=== PATIENT | female | born 1995 | race Two or more races ===

== ENCOUNTER → 2019-02-13 | Outpatient (CLI) | payer BC | LOC: OD 18:58 | PROVIDERS: ATTEND Nurse Practitioner Family | DX: R30.0 Dysuria (principal) | CPT/HCPCS: 87086; 87088; 87186 ==

== ENCOUNTER 2019-08-19 14:23 | Emergency (ER) | payer BC ==
--- NOTE | 2019-08-19 14:51 | ER Document Report ---
ED Medical Screen (RME) - General Chief Complaint: Abdominal Pain Stated Complaint: ABDOMINAL PAIN Time Seen by Provider: 08/19/19 14:37 Primary Care Provider: MANDO COLVIN NP [Primary Care Provider] - Follow up as needed Mode of Arrival: Ambulatory Information source: Patient Notes: 24-year-old female presents emergency department with complaints of right lower quad mid abdominal pain for the past 2 days. Reports it hurts more when she walks or when she goes to stand up. Reports vaginal discharge and vaginal irritation more than normal. Denies pain with void. Complains of nausea denies fever vomiting. Reports decreased appetite. patient is tender to palpate in the right lower quad and lower mid abdominal area. I have greeted and performed a rapid initial assessment of this patient. A comprehensive ED assessment and evaluation of the patient, analysis of test results and completion of the medical decision making process will be conducted by additional ED providers. Dictation of this chart was performed using voice recognition software; therefore, there may be some unintended grammatical errors. TRAVEL OUTSIDE OF THE [place] IN LAST 30 DAYS: No - Related Data Allergies/Adverse Reactions: No Known Allergies Allergy (Verified 08/19/19 14:25) Physical Exam - Vital signs Vitals: Temp Pulse Resp BP Pulse Ox 98 F 58 L 14 114/56 L 100 08/19/19 14:25 08/19/19 14:25 08/19/19 14:25 08/19/19 14:25 08/19/19 14:25 Course - Vital Signs Vital signs: Temp Pulse Resp BP Pulse Ox 98 F 58 L 14 114/56 L 100 08/19/19 14:25 08/19/19 14:25 08/19/19 14:25 08/19/19 14:25 08/19/19 14:25 Doctor's Discharge - Discharge Referrals: MANDO COLVIN NP [Primary Care Provider] - Follow up as needed
[2019-08-19 15:26] LABS: ABSOLUTE EOSINOPHILS # (AUTO) 0.2 10^3/uL (0.0-0.6); ABSOLUTE LYMPHOCYTES (AUTO) 2.4 10^3/uL (0.5-4.7); ABSOLUTE MONOCYTES (AUTO) 0.3 10^3/uL (0.1-1.4); ABSOLUTE NEUT (AUTO) 4.4 10^3/uL (1.7-8.2); BASOPHILS % (AUTO) 0.5 % (0-2); EOSINOPHILS % (AUTO) 2.1 % (0-6); HEMATOCRIT 35.1 % (36.0-47.0); HEMOGLOBIN 12.2 g/dL (12.0-15.5); LYMPHOCYTES % (AUTO) 32.7 % (13-45); MEAN CORPUSCULAR HEMOGLOBIN 29.9 pg (27.0-33.4); MEAN CORPUSCULAR HGB CONC 34.7 g/dL (32.0-36.0); MEAN CORPUSCULAR VOLUME 86 fl (80-97); MONOCYTES % (AUTO) 4.4 % (3-13); PLATELET COUNT 176 10^3/uL (150-450); RED BLOOD COUNT 4.07 10^6/uL (3.72-5.28); RED CELL DISTRIBUTION WIDTH 12.8 % (11.5-14.0); SEGMENTED NEUTROPHILS % (AUTO) 60.3 % (42-78); TOTAL CELLS COUNTED % (AUTO) 100 %; WHITE BLOOD COUNT 7.3 10^3/uL (4.0-10.5)
--- NOTE | 2019-08-19 15:27 | ER Document Report ---
ED General - General Chief Complaint: Abdominal Pain Stated Complaint: ABDOMINAL PAIN Time Seen by Provider: 08/19/19 14:37 Primary Care Provider: MANDO COLVIN NP [NO LOCAL MD] - 08/22/19 Mode of Arrival: Ambulatory TRAVEL OUTSIDE OF THE [place] IN LAST 30 DAYS: No - HPI Notes: 24 year old female to the ED with complaints of lower abdominal pain, nausea and a small amount of diarrhea. Patient reports her last satisfactory BM was 4-5 day ago. States that the pain in cramping in nature and seems to be worse on the right side. States that the pain comes and goes. Denies chance for . Denies fever or chills. Denies chest pain, SOB, urinary complaints. - Related Data Allergies/Adverse Reactions: No Known Allergies Allergy (Verified 08/19/19 14:25) Past Medical History - General Information source: Patient - Social History Smoking Status: Never Smoker Frequency of alcohol use: None Drug Abuse: None Family History: Reviewed & Not Pertinent Patient has suicidal ideation: No Patient has homicidal ideation: No Review of Systems - Review of Systems Constitutional: denies: Chills, Diaphoresis, Fever EENT: No symptoms reported Cardiovascular: denies: Chest pain, Palpitations, Heart racing, Orthopnea, Dyspnea, Syncope, Dizziness, Lightheaded Respiratory: denies: Cough, Short of breath Gastrointestinal: Abdominal pain, Diarrhea, Nausea, Constipation. denies: Vomiting Genitourinary: No symptoms reported Female Genitourinary: No symptoms reported Musculoskeletal: No symptoms reported Skin: No symptoms reported -: Yes All other systems reviewed and negative Physical Exam - Vital signs Vitals: Temp Pulse Resp BP Pulse Ox 98 F 58 L 14 114/56 L 100 08/19/19 14:25 08/19/19 14:25 08/19/19 14:25 08/19/19 14:25 08/19/19 14:25 Interpretation: Normal - General General appearance: Appears well, Alert In distress: None - HEENT Head: Normocephalic, Atraumatic Eyes: Normal Pupils: PERRL - Respiratory Respiratory status: No respiratory distress Chest status: Nontender Breath sounds: Normal Chest palpation: Normal - Cardiovascular Rhythm: Regular Heart sounds: Normal auscultation Murmur: No - Abdominal Inspection: Normal Distension: No distension Bowel sounds: Normal Tenderness: Tender - + TTP over the RLQ and the LLQ. pain is greater in the RLQ than LLQ. No rebound or guarding. Negative Davenport's sign. Organomegaly: No organomegaly - Back Back: Normal, Nontender. No: CVA tenderness - Neurological Neuro grossly intact: Yes Cognition: Normal Orientation: AAOx4 [place] Coma Scale Eye Opening: Spontaneous [place] Coma Scale Verbal: Oriented [place] Coma Scale Motor: Obeys Commands [place] Coma Scale Total: 15 Speech: Normal Motor strength normal: LUE, RUE, LLE, RLE Sensory: Normal - Psychological Associated symptoms: Normal affect, Normal mood - Skin Skin Temperature: Warm Skin Moisture: Dry Skin Color: Normal Course - Re-evaluation Re-evalutation: Abdomen/Pelvis CT 08/19/19 15:27 IMPRESSION: The appendix is normal. There is a possible 2 cm septated cyst on the right ovary. Recommend pelvic ultrasound. Transvaginal US 08/19/19 17:53 IMPRESSION: ESSENTIALLY NORMAL TRANSVAGINAL PELVIC ULTRASOUND. IMpression: Lower abdominal pain, follicular ovarian cysts. Patient has had relief of pain and feeling much better. Her labs are reassuring. Will discharge home and have her follow up outpatient. Encouraged to return if worse at all. - Vital Signs Vital signs: Temp Pulse Resp BP Pulse Ox 98.2 F 65 16 116/56 L 99 08/19/19 20:32 08/19/19 20:32 08/19/19 20:32 08/19/19 20:32 08/19/19 20:32 - Laboratory Result Diagrams: 08/19/19 15:01 08/19/19 15:01 Laboratory results interpreted by me: 08/19/19 15:01 Hct 35.1 L - Diagnostic Test Radiology reviewed: Image reviewed, Reports reviewed Discharge - Discharge Clinical Impression: Pelvic pain, Follicle cyst Condition: Stable Disposition: HOME, SELF-CARE Instructions: Abdominal Pain ([facility]) Additional Instructions: TAKE MEDICINES PRESCRIBED. RETURN IF WORSENING PAIN, FEVERS, INTRACTABLE VOMITING. PUSH FLUIDS. REST. TAKE MEDICINES PRESCRIBED. Prescriptions: Ketorolac Tromethamine [Toradol 10 mg Tablet] 10 mg PO Q8HP PRN #9 tablet PRN Reason: Ondansetron [Zofran Odt 4 mg Tablet] 1 - 2 tab PO Q4H PRN #15 tab.rapdis PRN Reason: For Nausea/Vomiting Forms: Return to Work Referrals: MANDO COLVIN NP [NO LOCAL MD] - 08/22/19
[2019-08-19 15:28] LABS: APPEARANCE,URINE CLEAR; BILIRUBIN,URINE NEGATIVE (NEGATIVE); COLOR,URINE YELLOW; GLUCOSE, URINE NEGATIVE (NEGATIVE); KETONES,URINE NEGATIVE (NEGATIVE); LEUKOCYTE ESTERASE,URINE NEGATIVE (NEGATIVE); NITRITE,URINE NEGATIVE (NEGATIVE); PROTEIN,URINE NEGATIVE (NEGATIVE); URINE SPECIFIC GRAVITY 1.015; UROBILINOGEN,URINE NEGATIVE mg/dL (<2.0)
[2019-08-19] MEDS ORDERED: NORMAL SALINE 1000 ML 1,000 ML IV ONE (15:28)
[2019-08-19] MEDS ORDERED: ONDANSETRON HCL INJ/PF 4 MG/2 ML SDV IV ONE (15:28)
[2019-08-19] MEDS ORDERED: MORPHINE SULFATE 10 MG/ML INJ IV ONE (15:29)
[2019-08-19 15:45] LABS: ALKALINE PHOSPHATASE 46 U/L (38-126); ANION GAP 8 (5-19); ASPARTATE AMINO TRANSFERASE 30 U/L (14-36); BILIRUBIN,DIRECT 0.1 mg/dL (0.0-0.4); BILIRUBIN,TOTAL 0.2 mg/dL (0.2-1.3); BLOOD UREA NITROGEN 7 mg/dL (7-20); CALCIUM 8.8 mg/dL (8.4-10.2); CARBON DIOXIDE 30 mmol/L (22-30); CHLORIDE 101 mmol/L (98-107); GLUCOSE 92 mg/dL (75-110); POTASSIUM 3.8 mmol/L (3.6-5.0); TOTAL PROTEIN 6.8 g/dL (6.3-8.2)
--- NOTE | 2019-08-19 16:53 | RADIOLOGY REPORT (SQ) ---
EXAM DESCRIPTION: CT ABD/PELVIS WITH IV ONLY COMPLETED DATE/TIME: 08/19/2019 4:32 pm REASON FOR STUDY: RLQ pain COMPARISON: None. TECHNIQUE: CT scan of the abdomen and pelvis performed using helical scanning technique with dynamic intravenous contrast injection. No oral contrast. Images reviewed with lung, soft tissue, and bone windows. Reconstructed coronal and sagittal MPR images reviewed. Delayed images for evaluation of the urinary system also acquired. All images stored on PACS. All CT scanners at this facility use dose modulation, iterative reconstruction, and/or weight based d osing when appropriate to reduce radiation dose to as low as reasonably achievable (ALARA). [facility]: Dose Right [facility]: CareDose [facility]: Dose Right [facility]: Teradose 4D [facility]: [employer] Vaccines CONTRAST TYPE AND DOSE: contrast/concentration: Isovue 350.00 mg/ml; Total Contrast Delivered: 61.0 ml; Total Saline Delivered: 65.0 ml RENAL FUNCTION: BUN 7 creatinine 0.66 RADIATION DOSE: CT Rad equipment meets quality standard of care and radiation dose reduction techniq ues were employed. CTDIvol: 4.8 - 5.2 mGy. DLP: 469 mGy-cm.. LIMITATIONS: None. FINDINGS: LOWER CHEST: No significant findings. No nodules or infiltrates. LIVER: Normal size. No masses. No dilated ducts. SPLEEN: Normal size. No focal lesions. PANCREAS: No masses. No significant calcifications. No adjacent inflammation or peripancreatic fluid collections. Pancreatic duct not dilated. GALLBLADDER: No identified stones by CT criteria. No inflammatory changes to suggest cholecystitis. ADRENAL GLANDS: No significant masses or asymmetry. RIGHT KIDNEY AND URETER: No solid masses. No significant calcifications. No hydronephrosis or hyd roureter. LEFT KIDNEY AND URETER: No solid masses. No significant calcifications. No hydronephrosis or hydr oureter. AORTA AND VESSELS: No aneurysm. No dissection. Renal arteries, SMA, celiac without stenosis. RETROPERITONEUM: No retroperitoneal adenopathy, hemorrhage or masses. BOWEL AND PERITONEAL CAVITY: No masses or inflammatory changes. No free fluid or peritoneal masses. APPENDIX: Normal. PELVIS: Possible 2 cm septated cyst in the right ovary on image 60 series 3 urinary bladder is normal . No free fluid. ABDOMINAL WALL: No masses. No hernias. BONES: No significant or acute findings. OTHER: No other significant finding. IMPRESSION: The appendix is normal. There is a possible 2 cm septated cyst on the right ovary. Rec ommend pelvic ultrasound. TECHNICAL DOCUMENTATION: JOB ID: [id number] Quality ID # [id number]: Final reports with documentation of one or more dose reduction techniques (e.g., Au tomated exposure control, adjustment of the mA and/or kV according to patient size, use of iterative reconstruction technique) 2010 [employer]- All Rights Reserved Reading location - IP/workstation name: [email or web address]
[2019-08-19 18:14] LABS: CHLAM PCR NOT DETECTED (NOT DETECT)
--- NOTE | 2019-08-19 20:08 | RADIOLOGY REPORT (SQ) ---
EXAM DESCRIPTION: U/S NON OB PEL TV W/DOPPLER COMPLETED DATE/TIME: 08/19/2019 7:40 pm REASON FOR STUDY: RLQ abd pain, eval torsion COMPARISON: CT abdomen pelvis 08/19/2019 TECHNIQUE: Dynamic and static grayscale images acquired of the pelvis via transvaginal approach and recorded on PACS. Additional selected color Doppler and spectral images recorded. LIMITATIONS: None. FINDINGS: UTERUS: Contour normal. No mass. Uterus is 8 x 4 x 5 cm in size ENDOMETRIAL STRIPE: No focal or generalized thickening. No masses. Endometrial stripe 7 mm in thickn ess CERVIX: No nabothian cysts. Closed, 2.5 cm in length. RIGHT OVARY AND DOPPLER: Normal size, 2.5 x 2.2 x 3.4 cm in size. Multiple small follicular cysts, b enign. No worrisome masses. Normal arterial vascular flow without evidence for torsion. LEFT OVARY AND DOPPLER: Normal size, 2.3 x 1.6 x 1.5 cm in size. No worrisome masses. Normal arterial vascular flow without evidence for torsion. FREE FLUID: None noted. OTHER: Urine HCG was negative today. IMPRESSION: ESSENTIALLY NORMAL TRANSVAGINAL PELVIC ULTRASOUND. TECHNICAL DOCUMENTATION: JOB ID: [id number] [employer] All Rights Reserved Rev-04/16 Reading location - IP/workstation name: [email or web address]
[2019-08-19 20:34] VITALS: BP 116/56
== END 2019-08-19 20:33 | disposition home or self-care (01) ==
LOC: ER 14:23
DX: N83.01 Follicular cyst of right ovary (principal); R10.2 Pelvic and perineal pain; R10.9 Unspecified abdominal pain; R10.31 Right lower quadrant pain; N89.8 Other specified noninflammatory disorders of vagina; R19.7 Diarrhea, unspecified
CPT/HCPCS: 99284; 96361; 96374; 96375; 36415; 85025; 81025; 80053; 81001; 87491; 87591; 76830; 93976; 74177; J2270; J2405; J7030

== ENCOUNTER 2019-10-07 18:57 | Emergency (ER) | payer OTHER, BC ==
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
[2019-10-07] MEDS ORDERED: NAPROXEN 250 MG TABLET PO ONE (21:50)
[2019-10-07] MEDS ORDERED: CYCLOBENZAPRINE HCL 10 MG TABLET PO ONE (21:50)
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
[2019-10-07 22:14] VITALS: BP 120/51
== END 2019-10-07 22:24 | disposition home or self-care (01) ==
LOC: ER 18:57
DX: S29.012A Strain of muscle and tendon of back wall of thorax, initial encounter (principal); M54.6 Pain in thoracic spine; M25.511 Pain in right shoulder; M25.512 Pain in left shoulder; V89.2XXA Person injured in unspecified motor-vehicle accident, traffic, initial encounter
CPT/HCPCS: 99283

== ENCOUNTER 2020-08-20 20:53 | Emergency (ER) | payer BC, MEDICAID, OTHER ==
--- NOTE | 2020-08-20 21:56 | ER Document Report ---
ED Medical Screen (RME) - General Chief Complaint: Abdominal Pain Stated Complaint: LOWER ABDOMINAL PAIN Time Seen by Provider: 08/20/20 21:48 Mode of Arrival: Ambulatory Information source: Patient Notes: 25-year-old male presented to ED for lower abdominal/pelvic pain. She states the pain is been for couple days. She states she has had brownish discharge for for 5 days. She states her last menstrual. Was July 20. She states she does have a history of her right salpingo-oophorectomy due to an ovarian cyst. She states they also removed her appendix at that time. She states she does not know if she is or if she is just having vaginal discharge. She does complain of tenderness to palpation. She denies any urinary symptoms. I have greeted and performed a rapid initial assessment of this patient. A comprehensive ED assessment and evaluation of the patient, analysis of test results and completion of medical decision making process will be conducted by an additional ED providers. TRAVEL OUTSIDE OF THE [place] IN LAST 30 DAYS: No - Related Data Allergies/Adverse Reactions: No Known Allergies Allergy (Unverified 10/07/19 20:11) Physical Exam - Vital signs Vitals: Temp Pulse Resp BP Pulse Ox 98.0 F 94 16 118/62 96 08/20/20 21:01 08/20/20 21:01 08/20/20 21:01 08/20/20 21:01 08/20/20 21:01 Course - Vital Signs Vital signs: Temp Pulse Resp BP Pulse Ox 98.0 F 94 16 118/62 96 08/20/20 21:01 08/20/20 21:01 08/20/20 21:01 08/20/20 21:01 08/20/20 21:01
[2020-08-20 22:20] LABS: APPEARANCE,URINE CLEAR; BILIRUBIN,URINE NEGATIVE (NEGATIVE); COLOR,URINE YELLOW; GLUCOSE, URINE NEGATIVE (NEGATIVE); KETONES,URINE NEGATIVE (NEGATIVE); LEUKOCYTE ESTERASE,URINE NEGATIVE (NEGATIVE); NITRITE,URINE NEGATIVE (NEGATIVE); PROTEIN,URINE NEGATIVE (NEGATIVE); URINE SPECIFIC GRAVITY 1.025; UROBILINOGEN,URINE NEGATIVE mg/dL (<2.0)
--- NOTE | 2020-08-20 23:35 | RADIOLOGY REPORT (SQ) ---
EXAM DESCRIPTION: US TRANSVAGINAL COMPLETED DATE/TME: 08/20/2020 21:53 CLINICAL HISTORY: 25 years, Female, pelvic pain vaginal bleed rt ovary tube removed COMPARISON: Prior study from 08/19/2019 TECHNIQUE: Axial 2-D grayscale images of the pelvis were acquired. Doppler was utilized. LIMITATIONS: None. FINDINGS: Uterus measures 9.2 x 4.6 x 5.9 cm in size. Cervix is closed, measuring 2.9 cm in length. Endometrial stripe thickness measures 1.2 cm. A small amount of fluid is noted within the endometrial cavity. No intrauterine identified. Left ovary measures 3.5 x 2.5 x 2.5 cm in size. It demonstrates elements of Doppler flow. The right ovary is absent. A small amount of free fluid is noted within the posterior cul-de-sac. IMPRESSION: No intrauterine identified. However, there is a small amount of fluid within the endometrial cavity. Recommend continued surveillance with serial beta hCG levels as well as follow-up pelvic ultrasound as differential considerations include an early , recent miscarriage, or potentially an ectopic in the appropriate clinical setting. Small amount of free fluid within the posterior cul-de-sac. copyright 2010 [employer]- All Rights Reserved
[2020-08-21 00:02] LABS: ABSOLUTE EOSINOPHILS # (AUTO) 0.1 10^3/uL (0.0-0.6); ABSOLUTE LYMPHOCYTES (AUTO) 2.4 10^3/uL (0.5-4.7); ABSOLUTE MONOCYTES (AUTO) 0.4 10^3/uL (0.1-1.4); ABSOLUTE NEUT (AUTO) 5.5 10^3/uL (1.7-8.2); BASOPHILS % (AUTO) 0.4 % (0-2); EOSINOPHILS % (AUTO) 1.2 % (0-6); HEMATOCRIT 36.1 % (36.0-47.0); HEMOGLOBIN 12.8 g/dL (12.0-15.5); LYMPHOCYTES % (AUTO) 28.5 % (13-45); MEAN CORPUSCULAR HEMOGLOBIN 30.3 pg (27.0-33.4); MEAN CORPUSCULAR HGB CONC 35.5 g/dL (32.0-36.0); MEAN CORPUSCULAR VOLUME 86 fl (80-97); MONOCYTES % (AUTO) 5.1 % (3-13); PLATELET COUNT 204 10^3/uL (150-450); RED BLOOD COUNT 4.23 10^6/uL (3.72-5.28); RED CELL DISTRIBUTION WIDTH 12.9 % (11.5-14.0); SEGMENTED NEUTROPHILS % (AUTO) 64.8 % (42-78); TOTAL CELLS COUNTED % (AUTO) 100 %; WHITE BLOOD COUNT 8.5 10^3/uL (4.0-10.5)
[2020-08-21 00:10] LABS: ALBUMIN 4.5 g/dL (3.5-5.0); ALKALINE PHOSPHATASE 53 U/L (38-126); ANION GAP 8 (5-19); ASPARTATE AMINO TRANSFERASE 24 U/L (14-36); BILIRUBIN,DIRECT 0.2 mg/dL (0.0-0.4); BILIRUBIN,TOTAL 0.4 mg/dL (0.2-1.3); BLOOD UREA NITROGEN 13 mg/dL (7-20); CARBON DIOXIDE 24 mmol/L (22-30); CHLORIDE 105 mmol/L (98-107); GLUCOSE 87 mg/dL (75-110); POTASSIUM 4.3 mmol/L (3.6-5.0); TOTAL PROTEIN 7.6 g/dL (6.3-8.2)
[2020-08-21 04:36] VITALS: BP 110/61
--- NOTE | 2020-08-21 05:15 | ER Document Report ---
ED General - General Chief Complaint: Abdominal Pain Stated Complaint: LOWER ABDOMINAL PAIN Time Seen by Provider: 08/20/20 21:48 Primary Care Provider: [facility] [Provider Group] - Follow up as needed Mode of Arrival: Ambulatory TRAVEL OUTSIDE OF THE U.S. IN LAST 30 DAYS: No - HPI Notes: Patient is a 25-year-old female with lower abdominal pain for the past 4 days with a positive test 2 days ago. Patient endorses low back pain, nausea and one episode of diarrhea. She also reports spotting of brown discharge. She denies vomiting, fever, dysuria, vaginal bleeding, hematuria, and constipation. G2, P1. Patient had a right salpingo-oophorectomy done in December of this year due to an ovarian cyst. Patient denies any medical history. She does not smoke, drink alcohol or use recreational drugs. - Related Data Allergies/Adverse Reactions: No Known Allergies Allergy (Unverified 10/07/19 20:11) Past Medical History - General Information source: Patient - Social History Smoking Status: Never Smoker Family History: Reviewed & Not Pertinent Patient has homicidal ideation: No Review of Systems - Review of Systems Constitutional: No symptoms reported EENT: No symptoms reported Cardiovascular: No symptoms reported Respiratory: No symptoms reported Gastrointestinal: See HPI Genitourinary: No symptoms reported Female Genitourinary: See HPI Musculoskeletal: See HPI Skin: No symptoms reported Hematologic/Lymphatic: No symptoms reported Neurological/Psychological: No symptoms reported Physical Exam - Vital signs Vitals: Temp Pulse Resp BP Pulse Ox 98.0 F 94 16 118/62 96 08/20/20 21:01 08/20/20 21:01 08/20/20 21:01 08/20/20 21:01 08/20/20 21:01 - Notes Notes: PHYSICAL EXAMINATION: VITALS: Vitals reviewed and within normal limits. GENERAL: Well-appearing, well-nourished and in no acute distress. HEAD: Atraumatic, normocephalic. EYES: Pupils equal round and reactive to light, extraocular movements intact, sclera anicteric, conjunctiva are normal. ENT: nares patent, oropharynx clear without exudates. Moist mucous membranes. NECK: Normal range of motion, supple without lymphadenopathy. LUNGS: Breath sounds clear to auscultation bilaterally and equal. No wheezes rales or rhonchi. HEART: Regular rate and rhythm without murmurs. ABDOMEN: Soft abdomen and normoactive bowel sounds. LLQ tenderness. No guarding, no rebound. No masses appreciated. EXTREMITIES: Normal range of motion, no pitting or edema. No cyanosis. BACK: Lumbar paraspinal muscle tenderness, R>L. NEUROLOGICAL: No focal neurological deficits. Moves all extremities spontaneously and on command. PSYCH: Normal mood, normal affect. SKIN: Warm, Dry, normal turgor, no rashes or lesions noted. Course - Re-evaluation Re-evalutation: Patient is a 25-year-old female with a history of right salpingo-oophorectomy who presents with lower abdominal pain for the past 4 days and a positive test 2 days ago. Vital signs are within normal limits. UA negative with no signs of infection. Beta hCG 1797.60. Transvaginal ultrasound shows no intrauterine identified. However, there is a small amount of fluid within the endometrial cavity. Concern for ectopic , so therefore consulted Dr. Nathan Langston who recommended discharging the patient home with follow up in 2 days for repeat ultrasound and hCG. I consulted with my attending, Dr. Oconnell, who agrees with this recommendation. Patient will be discharged home with detailed return precautions and instructions to follow up. - Vital Signs Vital signs: Temp Pulse Resp BP Pulse Ox 98.2 F 68 16 110/61 99 08/21/20 04:34 08/21/20 04:34 08/21/20 04:34 08/21/20 04:34 08/21/20 04:34 - Laboratory Result Diagrams: 08/20/20 23:43 08/20/20 23:43 Laboratory results interpreted by me: 08/20/20 08/20/20 21:56 23:43 Sodium 136.5 L Creatinine 0.46 L Beta HCG, Quant 1797.60 H Urine Blood SMALL H - Diagnostic Test Radiology reviewed: Reports reviewed Radiology results interpreted by me: Obstetrics Ultrasound 08/20/20 21:53 IMPRESSION: No intrauterine identified. However, there is a small amount of fluid within the endometrial cavity. Recommend continued surveillance with serial beta hCG levels as well as follow-up pelvic ultrasound as differential considerations include an early , recent miscarriage, or potentially an ectopic in the appropriate clinical setting. Small amount of free fluid within the posterior cul-de-sac. copyright 2011 [employer]- All Rights Reserved Discharge - Discharge Clinical Impression: Abdominal pain affecting Condition: Stable Disposition: HOME, SELF-CARE Additional Instructions: Return in two days (08/23) for repeat ultrasound and HCG. Ectopic Precaution An ultrasound was done and the was not seen in either the fallopian tubes or the uterus. It's possible you already had a miscarriage or that it's too early in your to see the fetus in the uterus. But the o ther possibility is that you have an ectopic (tubal) . Usually if an ectopic is too small to see, it's safe for you to go home. You should have a repeat quantitative HCG blood test. The level doubles every two days in normal pregnancies. If the level is falling rapidly, it means you've had a miscarriage. A repeat ultrasound in about a week may show the . If an ectopic is identified early, it can sometimes be treated without surgery. Return at once if you develop severe, sharp, and sudden pain in the lower abdomen, pain in the shoulder area, severe lightheadedness or fainting, or heavy bleeding (more than menstrual bleeding). Referrals: [facility] [Provider Group] - Follow up as needed
== END 2020-08-21 06:01 | disposition home or self-care (01) ==
LOC: ER 20:53
DX: O26.891 Other specified pregnancy related conditions, first trimester (principal); R10.30 Lower abdominal pain, unspecified; R10.814 Left lower quadrant abdominal tenderness; R11.0 Nausea; R19.7 Diarrhea, unspecified; R18.8 Other ascites; O26.851 Spotting complicating pregnancy, first trimester; O99.89 Other specified diseases and conditions complicating pregnancy, childbirth and the puerperium; M54.5 Low back pain; Z90.79 Acquired absence of other genital organ(s); Z90.721 Acquired absence of ovaries, unilateral; Z3A.01 Less than 8 weeks gestation of pregnancy
CPT/HCPCS: 36415; 76817; 80053; 81001; 84702; 85025; 86900; 86901; 87086; 99284

== ENCOUNTER 2020-08-23 12:52 | Emergency (ER) | payer BC, OTHER ==
--- NOTE | 2020-08-23 13:06 | ER Document Report ---
ED Medical Screen (RME) - General Chief Complaint: Other Stated Complaint: REVISIT/LABS Time Seen by Provider: 08/23/20 12:56 Notes: Patient is a G2, P1 25-year-old female who presents the emergency department for follow-up on her hCG levels and ultrasound. Patient denies any vaginal bleeding or abdominal pain at this time. Patient did have some spotting prior to her previous visit here in the emergency department. Patient has history of a right salpingo-oophorectomy in December. Patient's Medicaid is from [place], she was instructed to follow-up in the emergency department until her Medicaid switches over to [place]. Exam: Soft, nontender abdomen. I have greeted and performed a rapid initial assessment of this patient. A comprehensive ED assessment and evaluation of the patient, analysis of test results and completion of medical decision making process will be conducted by an additional ED providers. TRAVEL OUTSIDE OF THE U.S. IN LAST 30 DAYS: No - Related Data Allergies/Adverse Reactions: No Known Allergies Allergy (Unverified 10/07/19 20:11)
[2020-08-23 13:31] LABS: MEAN CORPUSCULAR HEMOGLOBIN 30.8 pg (27.0-33.4); MEAN CORPUSCULAR HGB CONC 36.1 g/dL (32.0-36.0); MEAN CORPUSCULAR VOLUME 85 fl (80-97); PLATELET COUNT 189 10^3/uL (150-450); RED BLOOD COUNT 4.22 10^6/uL (3.72-5.28); RED CELL DISTRIBUTION WIDTH 13.1 % (11.5-14.0); WHITE BLOOD COUNT 6.4 10^3/uL (4.0-10.5)
[2020-08-23 13:40] LABS: APPEARANCE,URINE SLIGHTLY-CLOUDY; BILIRUBIN,URINE NEGATIVE (NEGATIVE); COLOR,URINE YELLOW; GLUCOSE, URINE NEGATIVE (NEGATIVE); KETONES,URINE NEGATIVE (NEGATIVE); LEUKOCYTE ESTERASE,URINE TRACE (NEGATIVE); NITRITE,URINE NEGATIVE (NEGATIVE); PROTEIN,URINE NEGATIVE (NEGATIVE); URINE SPECIFIC GRAVITY 1.023; UROBILINOGEN,URINE NEGATIVE mg/dL (<2.0)
--- NOTE | 2020-08-23 14:23 | RADIOLOGY REPORT (SQ) ---
EXAM DESCRIPTION: U/S OB TRANSVAG W/DOPPLER IMAGES COMPLETED DATE/TIME: 08/23/2020 2:06 pm REASON FOR STUDY: follow up ultrasound COMPARISON: 08/20/2020 TECHNIQUE: Transvaginal static and realtime grayscale images acquired of the pelvis. Additional ish cted spectral and color Doppler images recorded. All images stored on PACs. bHCG: Pending CLINICAL DATES: LMP 07/20/2020. 4 weeks 6 days. LIMITATIONS: None. FINDINGS: FETUS: Single Living intrauterine . ULTRASOUND EGA: 5 weeks 2 days by gestational sac size. Gestational sac is not in the central endome trial canal. ULTRASOUND GISELA: 04/23/2021 EFW: Not applicable less than 20 weeks. CRL: pole is not yet seen. FHR: pole is not yet seen. Beats per minute. SURVEY: pole is not yet seen. AMNIOTIC FLUID: Adequate amount. PLACENTA: Not yet developed due to early gestation. SUBCHORIONIC BLEED: No SIZE OF BLEED: Not applicable. UTERUS: No masses. No anomalies. CERVICAL LENGTH: 2.2 cm. Closed. RIGHT ADNEXA: Right ovary is surgically absent. No adnexal free fluid. No adnexal masses. LEFT ADNEXA: Normal ovary with normal vascular flow. 3.5 x 2.8 x 2.4 cm. No adnexal free fluid. No adnexal masses. FREE FLUID: None. OTHER: No other significant finding. IMPRESSION: There is a gestational sac that may represent a cornual/ectopic on the right. Follow-up as clinically indicated. EGA 5 weeks 2 days. Trimester of : First trimester - 0 to 13 weeks. COMMENT: Pertinent findings on the imaging study reported as a CRITICAL RESULT to JAZMIN Wellington NP at14:17 on 08/23/2020. Category of Critical Result: cornual/ectopic TECHNICAL DOCUMENTATION: JOB ID: [id number] 2010 [employer]- All Rights Reserved rev-04/16 Reading location - IP/workstation name: [email or web address]
--- NOTE | 2020-08-23 15:12 | ER Document Report ---
Entered by DONAVON HUMPHREYS SCRIBE 08/23/20 1358 Acting as scribe for:USHA JUÁREZ MD ED General - General Chief Complaint: Abdominal Pain Stated Complaint: REVISIT/LABS Time Seen by Provider: 08/23/20 12:56 Primary Care Provider: PAM KAPADIA MD [ACTIVE PROVISIONAL STAFF] - (Follow up appt in office on Thursday08/27/20 at 0930 and then on 08/30/20 at 0930 at [facility]) Mode of Arrival: Ambulatory Information source: Patient Notes: This 25 year old female patient, , presents to the ED today for a repeat obstetrics U/S and hCG level. Patient was seen here x3 days ago for lower abdominal pain after having a positive home test. The U/S during that visit did not show an intrauterine and her hCG level was 1797, so she was advised to follow up here to get those redone. She has a history of right salpingo-oopharectecomy due to ovarian cyst complication in December of this year. Denies any vaginal bleeding or abdominal pain. TRAVEL OUTSIDE OF THE U.S. IN LAST 30 DAYS: No - Related Data Allergies/Adverse Reactions: No Known Allergies Allergy (Unverified 10/07/19 20:11) Past Medical History - General Information source: Patient - Social History Smoking Status: Never Smoker Cigarette use (# per day): No Chew tobacco use (# tins/day): No Smoking Education Provided: No Frequency of alcohol use: None Drug Abuse: None Family History: Reviewed & Not Pertinent Patient has suicidal ideation: No Patient has homicidal ideation: No Renal/ Medical History: Reports: Hx Ovarian Cysts Past Surgical History: Reports: Hx Appendectomy, Hx Gynecologic Surgery - Right salpingo-oopharectomy 12/2019 Review of Systems - Review of Systems Constitutional: No symptoms reported EENT: No symptoms reported Cardiovascular: No symptoms reported Respiratory: No symptoms reported Gastrointestinal: See HPI. denies: Abdominal pain Genitourinary: No symptoms reported Female Genitourinary: See HPI, Last menstrual period - 07/20/2020, . denies: Vaginal bleeding Musculoskeletal: No symptoms reported Skin: No symptoms reported Hematologic/Lymphatic: No symptoms reported Neurological/Psychological: No symptoms reported -: Yes All other systems reviewed and negative Physical Exam - Vital signs Vitals: Temp Pulse Resp BP Pulse Ox 98.6 F 92 16 115/67 100 08/23/20 12:59 08/23/20 12:59 08/23/20 12:59 08/23/20 12:59 08/23/20 12:59 Interpretation: Normal - General General appearance: Appears well, Alert In distress: None - HEENT Head: Normocephalic, Atraumatic Eyes: Normal Pupils: PERRL - Respiratory Respiratory status: No respiratory distress Chest status: Nontender Breath sounds: Normal Chest palpation: Normal - Cardiovascular Rhythm: Regular Heart sounds: Normal auscultation Murmur: No Friction rub: No Gallop: None auscultated - Abdominal Inspection: Normal Distension: No distension Bowel sounds: Normal Tenderness: Nontender - Abdomen soft Organomegaly: No organomegaly - Back Back: Normal, Nontender - Extremities General upper extremity: Normal inspection General lower extremity: Normal inspection. No: Edema - Neurological Neuro grossly intact: Yes Orientation: AAOx4 Jansen Coma Scale Eye Opening: Spontaneous [place] Coma Scale Verbal: Oriented [place] Coma Scale Motor: Obeys Commands Jansen Coma Scale Total: 15 - Psychological Associated symptoms: Normal affect, Normal mood - Skin Skin Temperature: Warm Skin Moisture: Dry Skin Color: Normal Course - Re-evaluation Re-evalutation: 08/23/20 14:30 Patient's hormone level was 1797.63 days ago, it is 5405 today. She is blood type O+. Ultrasound shows what appears to be a cornual/ectopic in the right cornual region. - Vital Signs Vital signs: Temp Pulse Resp BP Pulse Ox 98.6 F 92 16 115/67 100 08/23/20 12:59 08/23/20 12:59 08/23/20 12:59 08/23/20 12:59 08/23/20 12:59 - Laboratory Result Diagrams: 08/23/20 13:15 Laboratory results interpreted by me: 08/23/20 08/23/20 08/23/20 13:15 13:15 13:20 MCHC 36.1 H Beta HCG, Quant 5405.80 H Urine Blood SMALL H Ur Leukocyte Esterase TRACE H - Diagnostic Test Radiology reviewed: Reports reviewed - Transvaginal ultrasound shows a 5-week 2- day gestational sac in the right cornual region consistent with a cornual/ectopic . - Consults Dr. Kapadia Time consulted: 14:27 Consulted provider: will come to ER Discharge - Discharge Clinical Impression: Cornual Condition: Stable Disposition: HOME, SELF-CARE Additional Instructions: RETURN TO HOSPITAL IMMEDIATELY IF PAIN DEVELOPS or heavy vaginal bleeding. KEEP F/U appts as scheduled. Prescriptions: Ondansetron [Zofran Odt 4 mg Tablet] 1 - 2 tab PO Q4HP PRN #10 tab.rapdis PRN Reason: Referrals: PAM KAPADIA MD [ACTIVE PROVISIONAL STAFF] - (Follow up appt in office on Thursday08/27/20 at 0930 and then on 08/30/20 at 0930 at [facility]) I personally performed the services described in the documentation, reviewed and edited the documentation which was dictated to the scribe in my presence, and it accurately records my words and actions.
--- NOTE | 2020-08-23 16:01 | PDOC CONSULTATION ---
Consultation Consult Date: 08/23/20 Provider Consulted: PAM APPIAH Consult reason:: Ectopic History of Present Illness History of Present Illness: PERICO MAYFIELD is a 25 year old female, at approx 4.6 wks EGA by LMP of 07/20/20 who came to ED for repeat US and Quant HCG after visiting a here three days ago, finding out she was but was too early to tell if was normal. Patient states she had missed her period and took a home test that was positive. She wanted to get an evaluation but had no insurance besides [place] medicaid. She is denying any pain or bleeding. She does report history of ovarian cyst on right and had to have surgery removing the right ovary and tube earlier this year. She is unsure if entire tube was removed. No PMH She is healthy otherwise She denies tobacco, alcohol or ilicit drug use. She lives within 3o minutes of the hospital Past Medical History LMP: 07/20/20 Social History Smoking Status: Never Smoker Family History Family History: Reviewed & Not Pertinent Parental Family History Reviewed: Yes Children Family History Reviewed: Yes Sibling(s) Family History Reviewed.: Yes Medication/Allergy Home Medications: Ketorolac Tromethamine [Toradol 10 mg Tablet] 10 mg PO Q8HP PRN #9 tablet 08/19/19 Ondansetron [Zofran Odt 4 mg Tablet] 1 - 2 tab PO Q4H PRN #15 tab.rapdis 08/19/19 Cyclobenzaprine HCl [Flexeril 5 mg Tablet] 5 mg PO TID #15 tablet 10/07/19 Naproxen [Naprosyn 375 Mg Tablet] 375 mg PO BID #20 tablet 10/07/19 Allergies/Adverse Reactions: No Known Allergies Allergy (Unverified 10/07/19 20:11) Review of Systems Constitutional: ABSENT: chills, fever(s), headache(s), weight gain, weight loss Cardiovascular: ABSENT: chest pain, dyspnea on exertion, edema, orthropnea, palpitations Respiratory: ABSENT: cough, hemoptysis Gastrointestinal: ABSENT: abdominal pain, constipation, diarrhea, hematemesis, hematochezia, nausea, vomiting Genitourinary: ABSENT: dysuria, hematuria Integumentary: ABSENT: rash, wounds Psychiatric: ABSENT: anxiety, depression, homidical ideation, suicidal ideation Hematologic/Lymphatic: ABSENT: easy bleeding, easy bruising Physical Exam - Physical Exam Vital Signs: Temp Pulse Resp BP Pulse Ox 98.6 F 92 16 115/67 100 08/23/20 12:59 08/23/20 12:59 08/23/20 12:59 08/23/20 12:59 08/23/20 12:59 Intake & Output 08/22/20 08/23/20 08/24/20 06:59 06:59 06:59 Weight 49 kg General appearance: PRESENT: no acute distress, cooperative Respiratory exam: PRESENT: clear to auscultation hazel Cardiovascular exam: PRESENT: RRR, +S1, +S2 Pulses: PRESENT: +2 pedal pulses bilateral GI/Abdominal exam: PRESENT: normal bowel sounds, soft. ABSENT: distended, guarding, mass, organolmegaly, rebound, tenderness Psychiatric exam: PRESENT: appropriate affect, normal mood. ABSENT: homicidal ideation, suicidal ideation Skin exam: PRESENT: dry, intact, warm. ABSENT: cyanosis, rash - Gynecological Exam Labia: normal Introitus: normal Vagina: normal Uterus: normal - No pain on palpation or no CMT Adhexa: normal Result Laboratory Results: 08/23/20 13:15 08/23/20 08/23/20 13:15 13:20 WBC 6.4 RBC 4.22 Hgb 13.0 Hct 36.0 MCV 85 MCH 30.8 MCHC 36.1 H RDW 13.1 Plt Count 189 Urine Color YELLOW Urine Appearance SLIGHTLY-CLOUDY Urine pH 6.0 Ur Specific [place] 1.023 Urine Protein NEGATIVE Urine Glucose (UA) NEGATIVE Urine Ketones NEGATIVE Urine Blood SMALL H Urine Nitrite NEGATIVE Ur Leukocyte Esterase TRACE H Urine WBC (Auto) 3 Urine RBC (Auto) 1 Impressions: Transvaginal US 08/23/20 13:02 IMPRESSION: There is a gestational sac that may represent a cornual/ectopic on the right. Follow-up as clinically indicated. EGA 5 weeks 2 days. Trimester of : First trimester - 0 to 13 weeks. Assessment & Plan - Diagnosis (1) Ectopic without intrauterine Qualifiers: Laterality: right Is this a current diagnosis for this admission?: Yes Plan: 25 yo at 4.6 wks EGA with ectopic/cornual ecopic possible. -VSS -No bleeding or abdominal pain -Discussed US and no IUP. Sac only and is 2-3 mm in size. No pole. No free fluid in cul de sac -Discussed options for patient to treat ectopic/possible cornual ectopic -The Gestational sac is small approx 3mm. No pole. QUant HCG is 5,400 . SHe has no medical issues. DIscussed treatment with surgery verses methotrexate IM. DIscussed importance of f/u at our office or here for repeat Quant HCG on day 4 and day 7 if she choses MTX. She reports she can follow up and is favoring this option. She has no contraindications. -Labs normal -Will calculate dose with pharmacy -pt weight 49 kg and height is 61 inches giving a dose of 73mg IM to be given now. -Will monitor for 30 minutes after injection -PRECAUTIONS given to return IMMEDIATELY if pain or worsening condition. -F/u in office in 4 days. - Time Critical Time spent with patient: 25-34 minutes Medications reviewed and adjusted accordingly: Yes Anticipated Discharge Disposition: Home, Self Care Anticipated Discharge Timeframe: within 24 hours - Follow up appt in office on Thursday08/27/20 at 0930 and then on 08/30/20 at 0930 at [facility]
[2020-08-23] MEDS ORDERED: DISPOSABLE IM PRN (17:00)
[2020-08-23] MEDS ORDERED: METHOTREXATE SODIUM IM PRN (17:00)
[2020-08-23 17:10] VITALS: BP 105/68
== END 2020-08-23 17:08 | disposition home or self-care (01) ==
LOC: ER 12:52
DX: O00.80 Other ectopic pregnancy without intrauterine pregnancy (principal); Z79.899 Other long term (current) drug therapy; Z79.1 Long term (current) use of non-steroidal anti-inflammatories (NSAID); Z90.79 Acquired absence of other genital organ(s); Z90.721 Acquired absence of ovaries, unilateral
CPT/HCPCS: 99285; 96372; 36415; 84702; 85027; 81001; 76817; 93976; J9260; J3490

== ENCOUNTER → 2020-08-27 | Outpatient (CLI) | payer SELFPAY | LOC: OD 11:12 | PROVIDERS: ATTEND Obstetrics & Gynecology | DX: O00.91 Unspecified ectopic pregnancy with intrauterine pregnancy (principal) | CPT/HCPCS: 36415; 84702 ==

== ENCOUNTER 2020-09-04 18:57 | Observation (INO) | payer MEDICAID ==
[~2020-09-04 18:57] MED LIST: DEXAMETHASONE SOD PHOSPHATE INJ 4 MG/1 ML VIAL ONE; GLYCOPYRROLATE 1 MG/5 ML VIAL ONE; KETOROLAC TROMETHAMINE 60 MG/2 ML SDV ONE; METOCLOPRAMIDE HCL INJ/PF 10 MG/2 ML SDV ONE; NEOSTIGMINE METHYLSULFATE 10 MG/10 ML VIAL ONE; ONDANSETRON HCL INJ/PF 4 MG/2 ML SDV ONE; PHENYLEPHRINE HCL INJ/PF 10 MG/1 ML SDV ONE; ROCURONIUM BROMIDE INJ 50 MG/5 ML VIAL IV ONE
--- NOTE | 2020-09-04 19:06 | ER Document Report ---
ED Medical Screen (RME) - General Chief Complaint: Abdominal Pain Stated Complaint: ABDOMINAL PAIN Time Seen by Provider: 09/04/20 19:01 Primary Care Provider: PAM APPIAH MD [Primary Care Provider] - Follow up as needed Mode of Arrival: Wheelchair Information source: Patient Notes: 25-year-old female presented to ED for complaint of excruciating right pelvic pa in. She states she came into the emergency room on the and was seen here for abdominal pain they told her it was a possible ectopic on the they did do a another ultrasound which showed a right 5-week 2-day gestational ectopic. She states she did get a shot on the for ectopic on the she got a second shot. She states she went to get her repeat labs done and the hCG was still on cramping. Today she started having excruciating pain. Will get repeat lab work and transvaginal ultrasound and have examined by another provider have ordered type and screen blood and urine. I have greeted and performed a rapid initial assessment of this patient. A comprehensive ED assessment and evaluation of the patient, analysis of test results and completion of medical decision making process will be conducted by an additional ED providers. TRAVEL OUTSIDE OF THE U.S. IN LAST 30 DAYS: No - Related Data Allergies/Adverse Reactions: No Known Allergies Allergy (Unverified 10/07/19 20:11) Past Medical History Renal/ Medical History: Reports: Hx Ovarian Cysts Past Surgical History: Reports: Hx Appendectomy, Hx Gynecologic Surgery - Right salpingo-oopharectomy 12/2019 Physical Exam - Vital signs Vitals: Temp 98.0 F 09/04/20 19:00 Course - Vital Signs Vital signs: Temp Pulse Resp BP Pulse Ox 98.0 F 104 H 22 H 116/78 100 09/04/20 19:00 09/04/20 19:07 09/04/20 19:07 09/04/20 19:07 09/04/20 19:07 Doctor's Discharge - Discharge Referrals: PAM APPIAH MD [Primary Care Provider] - Follow up as needed
[2020-09-04] MEDS ORDERED: FENTANYL CITRATE INJ/PF 100 MCG/2 ML AMPUL IV ONE (19:41)
[2020-09-04] MEDS ORDERED: ONDANSETRON HCL INJ/PF 4 MG/2 ML SDV IV ONE (19:42)
--- NOTE | 2020-09-04 19:54 | RADIOLOGY REPORT (SQ) ---
EXAM DESCRIPTION: U/S OB TRANSVAGINAL W/O DOP IMAGES COMPLETED DATE/TIME: 09/04/2020 7:34 pm REASON FOR STUDY: Right ectopic excruciating pain TECHNIQUE: Transvaginal static and realtime grayscale images acquired of the pelvis. Additional ish cted spectral and color Doppler images recorded. All images stored on PACs. CLINICAL AGE: 6 weeks, 3 days BHCG: Not available. LIMITATIONS: None. FINDINGS: UTERUS: Re- demonstration of a 2 cm rounded fluid containing focus in the region of the ri ght cornua. No yolk sac or pole are demonstrated. RIGHT ADNEXA: Surgically absent. LEFT ADNEXA: Not visualized. FREE FLUID: Complex free fluid is seen within the pelvis. OTHER: No other significant finding. IMPRESSION: Re- demonstration of a rounded fluid collection within the region of the right cornua wh ich may represent an interstitial/cornual ectopic . This is not appear to be significantly changed relative to 08/23/2020 sonographic evaluation. No beta HCG level available for correlation with ultrasound findings. TECHNICAL DOCUMENTATION: JOB ID: [id number] [employer]- All Rights Reserved COMPARISON: None. 08/23/2020 Reading location - IP/workstation name: [email or web address]
--- NOTE | 2020-09-04 20:12 | PDOC H&P ---
General Chief Complaint: abdominal pain with ruptured ectopic - Diagnosis (1) Ectopic without intrauterine Is this a Current Diagnosis?: Yes (2) Hemoperitoneum due to rupture of right tubal ectopic Is this a Current Diagnosis?: Yes - Current Medications/Allergies Allergies/Adverse Reactions: No Known Allergies Allergy (Unverified 10/07/19 20:11) Past Medical History Medical History: Other - pt seen inoffice and noted to have ectopic 2 weeks ago. treated with methotrexate 3 times and presented with abdominal pain and hemoperitoneum Cardiac Medical History: Reports: None Pulmonary Medical History: Reports: None EENT Medical History: Reports: None Neurological Medical History: Reports: None Past Surgical History Past Surgical History: Reports: Appendectomy Family History Family History: Reviewed & Not Pertinent Parental Family History Reviewed: Yes Children Family History Reviewed: Yes Sibling(s) Family History Reviewed.: Yes Social History Smoking Status: Never Smoker Electronic Cigarette use?: No - Advance Directive Resuscitation Status: Full Code Physical Exam Vital Signs: Temp Pulse Resp BP Pulse Ox 98.0 F 104 H 22 H 116/78 100 09/04/20 19:00 09/04/20 19:07 09/04/20 19:07 09/04/20 19:07 09/04/20 19:07 Intake & Output 09/03/20 09/04/20 09/05/20 06:59 06:59 06:59 Weight 50.3 kg General appearance: PRESENT: mild distress Respiratory exam: PRESENT: clear to auscultation hazel Cardiovascular exam: PRESENT: RRR GI/Abdominal exam: PRESENT: rebound, tenderness Impression/Plan Impression: ruptured right ectopic that may be cornual. plan is laparotomy with excision of right tube, Plan: exploratory laparotomy with excision of ectopic
--- NOTE | 2020-09-04 20:21 | ER Document Report ---
Entered by MICHAEL ALEMAN SCRIBE 09/04/201935 Acting as scribe for:DANIEL MCGREGOR DO ED GI/ - General Chief Complaint: OB Problem (<20wks) Stated Complaint: ABDOMINAL PAIN Time Seen by Provider: 09/04/20 19:01 Mode of Arrival: Wheelchair Information source: Patient Notes: This 25 year old female patient, with known right sided ectopic treated twice with methotrexate presents today with increasing right lower quadrant abdominal pain. She was diagnosed with a right-sided ectopic on 08/23 and was told on Thursday that her hCG levels are still rising. Patient developed increasing pain prior to arrival. Her last oral intake was at noon today. TRAVEL OUTSIDE OF THE [place] IN LAST 30 DAYS: No - Related Data Allergies/Adverse Reactions: No Known Allergies Allergy (Unverified 10/07/19 20:11) Past Medical History - General Information source: Patient - Social History Smoking Status: Never Smoker Cigarette use (# per day): No Chew tobacco use (# tins/day): No Frequency of alcohol use: None Drug Abuse: None Lives with: Family Family History: Reviewed & Not Pertinent Renal/ Medical History: Reports: Hx Ovarian Cysts Past Surgical History: Reports: Hx Appendectomy, Hx Gynecologic Surgery - Right salpingo-oopharectomy 12/2019 Review of Systems - Review of Systems Constitutional: No symptoms reported EENT: No symptoms reported Cardiovascular: No symptoms reported Respiratory: No symptoms reported Gastrointestinal: See HPI, Abdominal pain Genitourinary: No symptoms reported Female Genitourinary: See HPI, - ectopic Musculoskeletal: No symptoms reported Skin: No symptoms reported Hematologic/Lymphatic: No symptoms reported Neurological/Psychological: No symptoms reported -: Yes All other systems reviewed and negative Physical Exam - Vital signs Vitals: Temp 98.0 F 09/04/20 19:00 - Notes Notes: Physical Exam: General: Alert, appears uncomfortable due to pain. HEENT: Normocephalic. Atraumatic. PERRL. Extraocular movements intact. Oropharynx clear. Neck: Supple. Non-tender. Respiratory: No respiratory distress. Clear and equal breath sounds bilaterally. Cardiovascular: Regular rate and rhythm. Abdominal: Right abdominal tenderness to palpation. No distension. Normal Bowel Sounds. Back: No gross abnormalities. Extremities: Moves all four extremities. Upper extremities: Normal inspection. Normal ROM. Lower extremities: Normal inspection. No edema. Normal ROM. Neurological: Normal cognition. AAOx4. Normal speech. Psychological: Normal affect. Normal Mood. Skin: Warm. Dry. Normal color. Course - Re-evaluation Re-evalutation: 09/04/20 19:30 Call placed to reconciliation specialist OB Dr. Langston. Says he will call the OR to get them ready and he will be down to see the patient. Delightful 25 year old female with known right sided tubal - treated with methotrexate - is here with sudden onset of sharp right sided lower abd pain that is intense and accompanied by nausea and vomiting. No fever or covid exposure. Unfortunately ruptured ectopic is noted and she is rapidly placed on equipment monitor phototypesetting and ivf administered. The or team has been contacted and the cigar tobacco processing supervisor reconciliation specialist graciously came to the ED and evaluated the pt. She is to go to the OR for treatment of the hemoperitoneum due to the ruptured ectopic . - Vital Signs Vital signs: Temp Pulse Resp BP Pulse Ox 97.5 F 99 15 87/50 L 97 09/05/20 01:24 09/05/20 01:24 09/05/20 01:24 09/05/20 01:24 09/05/20 01:24 - Laboratory Result Diagrams: 09/05/20 00:54 09/04/20 20:10 - Diagnostic Test Radiology reviewed: Reports reviewed Critical Care Note - Critical Care Note Total time excluding time spent on procedures (mins): 30 Discharge - Discharge Clinical Impression: Hemoperitoneum due to rupture of right tubal ectopic Condition: Serious Disposition: ADMITTED OBSERVATION Admitting Provider: Dr. Langston Unit Admitted: Surgical Floor I personally performed the services described in the documentation, reviewed and edited the documentation which was dictated to the scribe in my presence, and it accurately records my words and actions.
[2020-09-04] MEDS ORDERED: MIDAZOLAM 2 MG/2 ML INJ ONE (20:24)
[2020-09-04] MEDS ORDERED: PROPOFOL INJ 200 MG/20 ML VIAL IV ONE (20:24)
[2020-09-04] MEDS ORDERED: FENTANYL CITRATE INJ/PF 100 MCG/2 ML AMPUL ONE (20:24)
[2020-09-04 20:36] LABS: ABSOLUTE LYMPHOCYTES (AUTO) 1.5 10^3/uL (0.5-4.7); ABSOLUTE MONOCYTES (AUTO) 0.4 10^3/uL (0.1-1.4); BASOPHILS % (AUTO) 0.3 % (0-2); EOSINOPHILS % (AUTO) 0.4 % (0-6); HEMATOCRIT 31.4 % (36.0-47.0); HEMOGLOBIN 11.2 g/dL (12.0-15.5); LYMPHOCYTES % (AUTO) 13.9 % (13-45); MEAN CORPUSCULAR HEMOGLOBIN 30.5 pg (27.0-33.4); MEAN CORPUSCULAR HGB CONC 35.7 g/dL (32.0-36.0); MEAN CORPUSCULAR VOLUME 85 fl (80-97); MONOCYTES % (AUTO) 3.9 % (3-13); PLATELET COUNT 214 10^3/uL (150-450); RED BLOOD COUNT 3.68 10^6/uL (3.72-5.28); RED CELL DISTRIBUTION WIDTH 13.3 % (11.5-14.0); SEGMENTED NEUTROPHILS % (AUTO) 81.5 % (42-78); TOTAL CELLS COUNTED % (AUTO) 100 %
[2020-09-04 20:51] LABS: ALKALINE PHOSPHATASE 58 U/L (38-126); ANION GAP 9 (5-19); ASPARTATE AMINO TRANSFERASE 24 U/L (14-36); BILIRUBIN,DIRECT 0.2 mg/dL (0.0-0.4); BILIRUBIN,TOTAL 0.3 mg/dL (0.2-1.3); BLOOD UREA NITROGEN 8 mg/dL (7-20); CALCIUM 8.4 mg/dL (8.4-10.2); CARBON DIOXIDE 22 mmol/L (22-30); CHLORIDE 106 mmol/L (98-107); GLUCOSE 105 mg/dL (75-110); POTASSIUM 3.7 mmol/L (3.6-5.0); TOTAL PROTEIN 6.9 g/dL (6.3-8.2)
[2020-09-04] MEDS ORDERED: DIPHENHYDRAMINE HCL 50 MG/ML VIAL IV PRN (21:02)
[2020-09-04] MEDS ORDERED: MEPERIDINE HCL/PF INJ 25 MG/1 ML DISP.SYRIN IV PRN (21:02)
[2020-09-04] MEDS ORDERED: PROMETHAZINE HCL INJ 25 MG/1 ML VIAL IV PRN ×2 (21:02)
[2020-09-04] MEDS ORDERED: ONDANSETRON HCL INJ/PF 4 MG/2 ML SDV IV PRN (21:02)
[2020-09-04] MEDS ORDERED: FENTANYL CITRATE INJ/PF 100 MCG/2 ML AMPUL IV PRN ×3 (21:02)
[2020-09-04] MEDS ORDERED: OXYCODONE-ACETAMINOPHEN 5-325 MG TABLET PO PRN ×2 (21:02)
--- NOTE | 2020-09-04 21:49 | Operative Report ---
Operative Report DATE OF SURGERY: 09/04/20 PREOPERATIVE DIAGNOSIS: Hemoperitoneum ruptured ectopic POSTOPERATIVE DIAGNOSIS: Ruptured cornual ectopic hemoperitoneum adhesions OPERATION: Posterior laparotomy resection of the cornual section of the uterus. SURGEON: AYESHA SR ANESTHESIA: GA TISSUE REMOVED OR ALTERED: Portion of uterus and tube containing ectopic COMPLICATIONS: None ESTIMATED BLOOD LOSS: 500 cc in her abdomen PROCEDURE: Patient is placed in a supine position prepped and draped in the usual fashion. A mini Pfannenstiel incision was made. Vision extended through the subcutaneous tissue and fascia with sharp dissection. Retroperitoneum was entered with sharp dissection. On entering the abdominal cavity copious amounts of blood were encountered and suctioned. Uterus was identified and an ectopic could be seen on the cornual isthmus portion of the tube on the right. Clamp laced across the uterus. Second clamp was placed on the distal portion of the tube. Third and fourth clamps were placed superior to the other clamps. The ectopic was then removed with sharp dissection. Uterine defect was then closed with interrupted 2-0 Vicryl. Hemostasis was noted. Left fallopian tube was identified identified through the fimbria and appeared to be normal. The remaining right fallopian tube adhered to the right adnexal wall was unable to identify through to the fimbria. Portion of the tube distal to where the resection was done appeared to be normal size and no overt signs of further rupture were noted. There was irrigated with normal saline. Hemostasis was again noted. The fascia was then closed with 0- Vicryl. Skin was closed with subcu absorbable shailesh. Patient's urine remained clear without her procedure she was taken recovery in good condition.
[2020-09-04] MEDS ORDERED: ACETAMINOPHEN 1,000 MG/100 ML RTUPB IV ONE (22:10)
[2020-09-04] MEDS ORDERED: IBUPROFEN 800 MG TABLET PO ONE (23:00)
[2020-09-04] MEDS ORDERED: ONDANSETRON HCL 8 MG TABLET PO ONE (23:00)
[2020-09-05] MEDS ORDERED: ONDANSETRON HCL 8 MG TABLET ONE ×2 (00:13→11:31)
[2020-09-05] MEDS: MORPHINE SULFATE 10 MG/ML INJ IV PRN ×2 (00:16→09:53)
[2020-09-05 01:09] LABS: HEMATOCRIT 19.7 % (36.0-47.0); MEAN CORPUSCULAR HEMOGLOBIN 30.4 pg (27.0-33.4); MEAN CORPUSCULAR HGB CONC 35.6 g/dL (32.0-36.0); MEAN CORPUSCULAR VOLUME 85 fl (80-97); PLATELET COUNT 157 10^3/uL (150-450); RED BLOOD COUNT 2.31 10^6/uL (3.72-5.28); RED CELL DISTRIBUTION WIDTH 12.9 % (11.5-14.0); WHITE BLOOD COUNT 18.5 10^3/uL (4.0-10.5)
[2020-09-05] MEDS: OXYCODONE-ACETAMINOPHEN 5-325 MG TABLET PO PRN ×2 (01:38→07:35)
[2020-09-05] MEDS: DEXTROSE 5%-LACTATED RINGERS 1,000 ML IV PRN ×2 (01:55→18:27)
[2020-09-05] MEDS: IBUPROFEN 800 MG TABLET PO SCH ×4 (02:29→18:28)
--- NOTE | 2020-09-05 07:24 | PDOC PROGRESS REPORT ---
Subjective Progress Note for:: 09/05/20 Subjective:: pt states she fels better than last night Reason For Visit: ECTOPIC post ex lap Physical Exam - Physical Exam Vital Signs: Temp Pulse Resp BP Pulse Ox 98.1 F 99 16 99/50 L 100 09/05/20 05:03 09/05/20 05:03 09/05/20 04:07 09/05/20 05:03 09/05/20 05:03 Intake & Output 09/04/20 09/05/20 09/06/20 06:59 06:59 06:59 Intake Total 2100 Output Total 1050 Balance 1050 Weight 50.3 kg General appearance: PRESENT: no acute distress, mild distress Respiratory exam: PRESENT: clear to auscultation hazel Cardiovascular exam: PRESENT: RRR GI/Abdominal exam: PRESENT: soft Result Laboratory Results: 09/05/20 00:54 09/04/20 20:10 09/04/20 09/04/20 09/04/20 20:10 20:10 20:10 WBC 11.0 H RBC 3.68 L Hgb 11.2 L Hct 31.4 L MCV 85 MCH 30.5 MCHC 35.7 RDW 13.3 Plt Count 214 Seg Neutrophils % 81.5 H Sodium 137.4 Potassium 3.7 Chloride 106 Carbon Dioxide 22 Anion Gap 9 BUN 8 Creatinine 0.51 L Est GFR ( Amer) > 60 Glucose 105 Calcium 8.4 Total Bilirubin 0.3 AST 24 Alkaline Phosphatase 58 Total Protein 6.9 Albumin 4.0 Blood Type O POSITIVE Antibody Screen NEGATIVE 09/05/20 09/05/20 00:05 00:54 WBC Cancelled 18.5 H RBC Cancelled 2.31 L Hgb Cancelled 7.0 L D Hct Cancelled 19.7 L MCV Cancelled 85 MCH Cancelled 30.4 MCHC Cancelled 35.6 RDW Cancelled 12.9 Plt Count Cancelled 157 Seg Neutrophils % Sodium Potassium Chloride Carbon Dioxide Anion Gap BUN Creatinine Est GFR ( Amer) Glucose Calcium Total Bilirubin AST Alkaline Phosphatase Total Protein Albumin Blood Type Antibody Screen Impressions: Obstetrics Ultrasound 09/04/20 19:02 IMPRESSION: Re- demonstration of a rounded fluid collection within the region of the right cornua which may represent an interstitial/cornual ectopic . This is not appear to be significantly changed relative to 08/23/2020 sonographic evaluation. No beta HCG level available for correlation with ultrasound findings. Assessment & Plan - Diagnosis (1) Ectopic without intrauterine Qualifiers: Laterality: right Is this a current diagnosis for this admission?: Yes (2) Hemoperitoneum due to rupture of right tubal ectopic Is this a current diagnosis for this admission?: Yes (3) Anemia Qualifiers: Anemia type: other cause Other causes of anemia: acute posthemorrhagic Qualified Code(s): D62 - Acute posthemorrhagic anemia Is this a current diagnosis for this admission?: Yes - Time Time Spent with patient: Less than 15 minutes Level of Care: MEDICAL Medications reviewed and adjusted accordingly: Yes Anticipated discharge: Home Anticipated DC Timeframe: within 24 hours - Plan Summary Plan Summary: continue with routine post op care
[2020-09-05] MEDS: ONDANSETRON HCL 8 MG TABLET PO SCH ×3 (11:14→20:42)
[2020-09-05] MEDS ORDERED: LIDOCAINE 1.5%/EPINEPHRINE INJ 5 ML AMP ONE (13:26)
[2020-09-05] MEDS ORDERED: LIDOCAINE 1% INJ-PF (10 MG/ML) 30 ML SDV ONE (13:33)
[2020-09-05 13:42] LABS: HEMATOCRIT 29.8 % (36.0-47.0); MEAN CORPUSCULAR HEMOGLOBIN 30.7 pg (27.0-33.4); MEAN CORPUSCULAR VOLUME 88 fl (80-97); PLATELET COUNT 145 10^3/uL (150-450); WHITE BLOOD COUNT 17.1 10^3/uL (4.0-10.5)
[2020-09-05 13:45] LABS: HEMOGLOBIN 10.4 g/dL (12.0-15.5)
[2020-09-05] MEDS ORDERED: AMPICILLIN SOD/SULBACTAM 3 GM VIAL IV SCH (15:00)
--- NOTE | 2020-09-05 15:04 | PDOC PROGRESS REPORT ---
Subjective Progress Note for:: 09/05/20 Subjective:: called to patient's bedside for bleeding from incision site. When I arrived there was noticeable pooling of the blood from the incision. On examination the incision had come open and there was only one dissolvable staple that was noted at the apex on the left aspect of the incision and this was removed with a pickup. I discussed the findings with the patient and made a plan for a bedside closure of the incision. The procedure to her and went over the risk benefits and alternatives. The patient was then prepared and draped in the sterile fashion I cleaned the incision site with Betadine after ensuring that she was not allergic to iodine. I then injected the incision with 10 cc of lidocaine with epi circumferentially or at the subcutaneous and skin layer. I then placed several interrupted sutures of 3-0 chromic in the subcutaneous layer. Some continued oozing noticed and pressure was applied. I felt that the oozing was coming from the subcutaneous tissue I did not note any fascial breakdown or oozing from underneath the fascia. I then closed the subcutaneous layer once more and with a 3-0 chromic using a running stitch. Skin was closed with a 4-0 Vicryl. The dressing was reapplied to the incision for hemostasis. Oozing and hemostasis was much improved at the end of the procedure. I did caution the patient that if bleeding ensued once more that we would then at that time make a decision to go to the OR for exploration of the laparotomy site. Voiced understanding of this and agreed to be n.p.o. for the next several hours until we knew if the procedure done at the bedside was effective. Reason For Visit: ECTOPIC Physical Exam - Physical Exam Vital Signs: Temp Pulse Resp BP Pulse Ox 97.4 F 87 17 107/59 L 100 09/05/20 11:45 09/05/20 11:45 09/05/20 11:45 09/05/20 11:45 09/05/20 11:45 Intake & Output 09/04/20 09/05/20 09/06/20 06:59 06:59 06:59 Intake Total 2100 1120 Output Total 1250 1000 Balance 850 120 Weight 50.3 kg Result Laboratory Results: 09/05/20 13:19 09/04/20 20:10 10/06/20 10/06/20 10/06/20 20:10 20:10 20:10 WBC 11.0 H RBC 3.68 L Hgb 11.2 L Hct 31.4 L MCV 85 MCH 30.5 MCHC 35.7 RDW 13.3 Plt Count 214 Seg Neutrophils % 81.5 H Sodium 137.4 Potassium 3.7 Chloride 106 Carbon Dioxide 22 Anion Gap 9 BUN 8 Creatinine 0.51 L Est GFR ( Amer) > 60 Glucose 105 Calcium 8.4 Total Bilirubin 0.3 AST 24 Alkaline Phosphatase 58 Total Protein 6.9 Albumin 4.0 Blood Type O POSITIVE Antibody Screen NEGATIVE 09/05/20 09/05/20 09/05/20 00:05 00:54 13:19 WBC Cancelled 18.5 H 17.1 H RBC Cancelled 2.31 L 3.40 L Hgb Cancelled 7.0 L D 10.4 L D Hct Cancelled 19.7 L 29.8 L MCV Cancelled 85 88 MCH Cancelled 30.4 30.7 MCHC Cancelled 35.6 35.0 RDW Cancelled 12.9 14.0 Plt Count Cancelled 157 145 L Seg Neutrophils % Sodium Potassium Chloride Carbon Dioxide Anion Gap BUN Creatinine Est GFR ( Amer) Glucose Calcium Total Bilirubin AST Alkaline Phosphatase Total Protein Albumin Blood Type Antibody Screen Impressions: Obstetrics Ultrasound 09/04/20 19:02 IMPRESSION: Re- demonstration of a rounded fluid collection within the region of the right cornua which may represent an interstitial/cornual ectopic . This is not appear to be significantly changed relative to 08/23/2020 sonographic evaluation. No beta HCG level available for correlation with ultrasound findings. Assessment & Plan - Diagnosis (1) Anemia Qualifiers: Anemia type: other cause Other causes of anemia: acute posthemorrhagic Qualified Code(s): D62 - Acute posthemorrhagic anemia Is this a current diagnosis for this admission?: Yes (2) Hemoperitoneum due to rupture of right tubal ectopic Is this a current diagnosis for this admission?: Yes (3) Ectopic without intrauterine Qualifiers: Laterality: right Is this a current diagnosis for this admission?: Yes - Time Time Spent with patient: 25-34 minutes Medications reviewed and adjusted accordingly: Yes Anticipated discharge: Home Anticipated DC Timeframe: within 48 hours - Inpatient Certification Based on my medical assessment, after consideration of the patient's comorbid ities, presenting symptoms, or acuity I expect that the services needed warrant INPATIENT care.: Yes I certify that my determination is in accordance with my understanding of Medicare's requirements for reasonable and necessary INPATIENT services [42 CFR 412.3e].: Yes Medical Necessity: Need for IV Antibiotics - Plan Summary Plan Summary: as above
[2020-09-05] MEDS: AMPICILLIN SODIUM/SULBACTAM NA 3 GM in NORMAL SALINE 100 ML IV SCH (18:27)
[2020-09-06] MEDS: AMPICILLIN SODIUM/SULBACTAM NA 3 GM in NORMAL SALINE 100 ML IV SCH ×2 (02:25→11:05)
[2020-09-06] MEDS: IBUPROFEN 800 MG TABLET PO SCH ×3 (02:26→18:29)
[2020-09-06] MEDS: DEXTROSE 5%-LACTATED RINGERS 1,000 ML IV PRN ×2 (03:25→12:55)
--- NOTE | 2020-09-06 08:58 | PDOC PROGRESS REPORT ---
Subjective Progress Note for:: 09/06/20 Subjective:: Feeling much better. She reports getting up to void without issues this am. Eating well. No n/v. She feels gas rumbling in her belly. NO vaginal bleeding. She did have a scare yesterday she states when her incision opened but no issues over night. She reports pain managed with PRN medications Reason For Visit: ECTOPIC Physical Exam - Physical Exam Vital Signs: Temp Pulse Resp BP Pulse Ox 98.0 F 85 14 103/56 L 99 09/06/20 07:38 09/06/20 07:38 09/06/20 07:38 09/06/20 07:38 09/06/20 07:38 Intake & Output 09/05/20 09/06/20 09/07/20 06:59 06:59 06:59 Intake Total 2100 4820 Output Total 1250 2250 Balance 850 2570 Weight 50.3 kg General appearance: PRESENT: no acute distress, cooperative Respiratory exam: PRESENT: clear to auscultation hazel Cardiovascular exam: PRESENT: RRR, +S1, +S2 GI/Abdominal exam: PRESENT: normal bowel sounds, soft - Dressing over incision d/i. Mild tenderness near incision Extremities exam: PRESENT: full ROM. ABSENT: calf tenderness, clubbing, pedal edema Musculoskeletal exam: PRESENT: ambulatory Neurological exam: PRESENT: alert, awake, oriented to person, oriented to place, oriented to time, oriented to situation, CN II-XII grossly intact. ABSENT: motor sensory deficit Psychiatric exam: PRESENT: appropriate affect, normal mood. ABSENT: homicidal ideation, suicidal ideation Skin exam: PRESENT: dry, intact, warm. ABSENT: cyanosis, rash Result Laboratory Results: 09/05/20 13:19 09/04/20 20:10 09/05/20 13:19 WBC 17.1 H RBC 3.40 L Hgb 10.4 L D Hct 29.8 L MCV 88 MCH 30.7 MCHC 35.0 RDW 14.0 Plt Count 145 L Impressions: Obstetrics Ultrasound 09/04/20 19:02 IMPRESSION: Re- demonstration of a rounded fluid collection within the region of the right cornua which may represent an interstitial/cornual ectopic . This is not appear to be significantly changed relative to 08/23/2020 sonographic evaluation. No beta HCG level available for correlation with ultrasound findings. Assessment & Plan - Diagnosis (1) Anemia Qualifiers: Anemia type: other cause Other causes of anemia: acute posthemorrhagic Qualified Code(s): D62 - Acute posthemorrhagic anemia Is this a current diagnosis for this admission?: Yes (2) Hemoperitoneum due to rupture of right tubal ectopic Is this a current diagnosis for this admission?: Yes (3) Ectopic without intrauterine Qualifiers: Laterality: right Is this a current diagnosis for this admission?: Yes - Time Time Spent with patient: 15-24 minutes - Plan Summary Plan Summary: 25 yo who is POD #2 after laparotomy with evacuation of hemoperitoneum and resection of ectopic -Doing well today -Eating well -Voiding -ambulating -CBC 11.2-->7-->10.4 -WBC up to 18, now 17 : receiving Zosyn x 3 doses. -Will monitor for flatus and/or BM. -Pressure dressing over wound when it opened yesterday and had to be closed at the bedside. WIll remove drsg today after 24 hrs -Likely d/c with in 24 hr.
[2020-09-06] MEDS: ONDANSETRON HCL 8 MG TABLET PO SCH ×3 (12:52→18:29)
[2020-09-06] MEDS: OXYCODONE-ACETAMINOPHEN 5-325 MG TABLET PO PRN (21:12)
[2020-09-06] MEDS ORDERED: ONDANSETRON HCL 8 MG TABLET ONE (22:42)
[2020-09-07] MEDS: DEXTROSE 5%-LACTATED RINGERS 1,000 ML IV PRN (00:28)
[2020-09-07] MEDS: IBUPROFEN 800 MG TABLET PO SCH ×3 (02:30→09:55)
--- NOTE | 2020-09-07 07:55 | PDOC DISCHARGE SUMMARY ---
Impression - Admit/DC Date/PCP Admission Date/Primary Care Provider: 09/04/20 20:04 PAM APPIAH MD Discharge Date: 09/07/20 - Discharge Diagnosis (1) Anemia Is this a current diagnosis for this admission?: Yes (2) Hemoperitoneum due to rupture of right tubal ectopic Is this a current diagnosis for this admission?: Yes (3) Ectopic without intrauterine Is this a current diagnosis for this admission?: Yes - Additional Information Resuscitation Status: Full Code Discharge Diet: As Tolerated Discharge Activity: Activity As Tolerated, No Driving, No Lifting Over 10 Pounds, Pelvic Rest, Slowly Increase Activity, No tub bath, Walk Frequently Referrals: PAM APPIAH MD [Primary Care Provider] - Follow up as needed Prescriptions: Docusate Sodium [Colace 100 mg Capsule] 100 mg PO BID 30 Days #60 capsule Ferrous Sulfate [Feosol 325 mg Tablet] 325 mg PO DAILY 30 Days #30 tablet Ibuprofen [Motrin 800 mg Tablet] 800 mg PO Q8 10 Days #30 tablet Oxycodone HCl/Acetaminophen [Percocet 5-325 mg Tablet] 1 tab PO Q6HP PRN 4 Days #24 tablet PRN Reason: Home Medications: Docusate Sodium [Colace 100 mg Capsule] 100 mg PO BID 30 Days #60 capsule 09/07/20 Ferrous Sulfate [Feosol 325 mg Tablet] 325 mg PO DAILY 30 Days #30 tablet 09/07/20 Ibuprofen [Motrin 800 mg Tablet] 800 mg PO Q8 10 Days #30 tablet 09/07/20 Oxycodone HCl/Acetaminophen [Percocet 5-325 mg Tablet] 1 tab PO Q6HP PRN 4 Days #24 tablet 09/07/20 History of Present Illiness History of Present Illness: PERICO MAYFIELD is a 25 year old female Physical Exam - Physical Exam Vital Signs: Temp Pulse Resp BP Pulse Ox 97.7 F 88 18 110/62 98 09/07/20 03:57 09/07/20 03:57 09/07/20 03:57 09/07/20 03:57 09/07/20 03:57 Intake & Output 09/06/20 09/07/20 09/08/20 06:59 06:59 06:59 Intake Total 4820 3160 Output Total 2250 1250 Balance 2570 1910 Results Laboratory Results: WBC 17.1 10^3/uL (4.0-10.5) H 09/05/20 13:19 RBC 3.40 10^6/uL (3.72-5.28) L 09/05/20 13:19 Hgb 10.4 g/dL (12.0-15.5) L D 09/05/20 13:19 Hct 29.8 % (36.0-47.0) L 09/05/20 13:19 MCV 88 fl (80-97) 09/05/20 13:19 MCH 30.7 pg (27.0-33.4) 09/05/20 13:19 MCHC 35.0 g/dL (32.0-36.0) 09/05/20 13:19 RDW 14.0 % (11.5-14.0) 09/05/20 13:19 Plt Count 145 10^3/uL (150-450) L 09/05/20 13:19 Lymph % (Auto) 13.9 % (13-45) 09/04/20 20:10 Roberts % (Auto) 3.9 % (3-13) 09/04/20 20:10 Eos % (Auto) 0.4 % (0-6) 09/04/20 20:10 Baso % (Auto) 0.3 % (0-2) 09/04/20 20:10 Absolute Neuts (auto) 9.0 10^3/uL (1.7-8.2) H 09/04/20 20:10 Absolute Lymphs (auto) 1.5 10^3/uL (0.5-4.7) 09/04/20 20:10 Absolute Monos (auto) 0.4 10^3/uL (0.1-1.4) 09/04/20 20:10 Absolute Eos (auto) 0.0 10^3/uL (0.0-0.6) 09/04/20 20:10 Absolute Basos (auto) 0.0 10^3/uL (0.0-0.2) 09/04/20 20:10 Seg Neutrophils % 81.5 % (42-78) H 09/04/20 20:10 Platelet Estimate Cancelled 09/05/20 00:05 Sodium 137.4 mmol/L (137-145) 09/04/20 20:10 Potassium 3.7 mmol/L (3.6-5.0) 09/04/20 20:10 Chloride 106 mmol/L (98-107) 09/04/20 20:10 Carbon Dioxide 22 mmol/L (22-30) 09/04/20 20:10 Anion Gap 9 (5-19) 09/04/20 20:10 BUN 8 mg/dL (7-20) 09/04/20 20:10 Creatinine 0.51 mg/dL (0.52-1.25) L 09/04/20 20:10 Est GFR ( Amer) > 60 (>60) 09/04/20 20:10 Est GFR (MDRD) Non-Af > 60 (>60) 09/04/20 20:10 Glucose 105 mg/dL (75-110) 09/04/20 20:10 Calcium 8.4 mg/dL (8.4-10.2) 09/04/20 20:10 Total Bilirubin 0.3 mg/dL (0.2-1.3) 09/04/20 20:10 Direct Bilirubin 0.2 mg/dL (0.0-0.4) 09/04/20 20:10 Neonat Total Bilirubin Not Reportable 09/04/20 20:10 Neonat Direct Bilirubin Not Reportable 09/04/20 20:10 Neonat Indirect Bili Not Reportable 09/04/20 20:10 AST 24 U/L (14-36) 09/04/20 20:10 ALT 15 U/L (<35) 09/04/20 20:10 Alkaline Phosphatase 58 U/L (38-126) 09/04/20 20:10 Total Protein 6.9 g/dL (6.3-8.2) 09/04/20 20:10 Albumin 4.0 g/dL (3.5-5.0) 09/04/20 20:10 Beta HCG, Quant 4456.10 mIU/mL (0.0-6.15) H 09/04/20 20:10 Total Beta HCG POSITIVE (NEGATIVE) 09/04/20 20:10 Slides for Path Review Cancelled 09/05/20 00:05 Blood Type O POSITIVE 09/04/20 20:10 Blood Type Confirm O POSITIVE 09/04/20 20:10 Antibody Screen NEGATIVE 09/04/20 20:10 Crossmatch See Detail 09/04/20 20:10 Impressions: Obstetrics Ultrasound 09/04/20 19:02 IMPRESSION: Re- demonstration of a rounded fluid collection within the region of the right cornua which may represent an interstitial/cornual ectopic . This is not appear to be significantly changed relative to 08/23/2020 sonographic evaluation. No beta HCG level available for correlation with ultrasound findings. Stroke Is this a Stroke Patient?: No Acute Heart Failure Is this a Heart Failure Patient?: No
[2020-09-07] MEDS: ONDANSETRON HCL 8 MG TABLET PO SCH (09:08)
[2020-09-07] MEDS ORDERED: DOCUSATE SODIUM 100 MG CAPSULE PO SCH (10:00)
[2020-09-07] MEDS ORDERED: FERROUS SULFATE 325 MG TABLET PO SCH (10:00)
[2020-09-07 10:56] LABS: ABSOLUTE EOSINOPHILS # (AUTO) 0.1 10^3/uL (0.0-0.6); ABSOLUTE LYMPHOCYTES (AUTO) 1.6 10^3/uL (0.5-4.7); ABSOLUTE MONOCYTES (AUTO) 0.6 10^3/uL (0.1-1.4); ABSOLUTE NEUT (AUTO) 6.9 10^3/uL (1.7-8.2); BASOPHILS % (AUTO) 0.2 % (0-2); EOSINOPHILS % (AUTO) 1.4 % (0-6); HEMATOCRIT 22.9 % (36.0-47.0); LYMPHOCYTES % (AUTO) 17.5 % (13-45); MEAN CORPUSCULAR HEMOGLOBIN 31.1 pg (27.0-33.4); MEAN CORPUSCULAR HGB CONC 35.4 g/dL (32.0-36.0); MEAN CORPUSCULAR VOLUME 88 fl (80-97); MONOCYTES % (AUTO) 6.9 % (3-13); PLATELET COUNT 126 10^3/uL (150-450); RED BLOOD COUNT 2.61 10^6/uL (3.72-5.28); RED CELL DISTRIBUTION WIDTH 13.9 % (11.5-14.0); TOTAL CELLS COUNTED % (AUTO) 100 %; WHITE BLOOD COUNT 9.3 10^3/uL (4.0-10.5)
[2020-09-07 11:11] LABS: HEMOGLOBIN 8.1 g/dL (12.0-15.5)
[2020-09-07 12:24] VITALS: BP 112/54
== END 2020-09-07 12:50 | disposition home or self-care (01) ==
LOC: ER 18:57 → EH 20:04 → 2N 22:53
PROVIDERS: ADMIT Obstetrics & Gynecology Gynecology; ATTEND Obstetrics & Gynecology Gynecology
DX: D62 Acute posthemorrhagic anemia (principal); O00.80 Other ectopic pregnancy without intrauterine pregnancy; K66.1 Hemoperitoneum; Z79.899 Other long term (current) drug therapy
CPT/HCPCS: 99291; 96374; 96375; 86900; 86901; 36415 ×3; 36430; 86850; 84702; 85025 ×2; 80053; 86920; 88305 ×2; 76817; 00840; 59899; G0378 ×4; C1758; P9016; J2250; J3490 ×9; J1100; J1885; J3010; J0295 ×2; J2765; J2270; J2710; S0119 ×3; J2370; J2405; J7121 ×3; J7050 ×2; J2704; J0131; 840